=== PATIENT | male | born 1990 | race Caucasian/White ===

== ENCOUNTER 2016-08-23 19:53 | Emergency (ER) | payer OTHER | END 2016-08-23 23:15 | disposition left against medical advice (07) | LOC: ER 19:53 | DX: Z53.21 Procedure and treatment not carried out due to patient leaving prior to being seen by health care provider (principal) | CPT/HCPCS: 99070; 99211 ==

== ENCOUNTER 2016-11-11 18:41 | Emergency (ER) | payer OTHER | END 2016-11-12 02:56 | disposition home or self-care (01) | LOC: ER 18:41 | DX: S92.502A Displaced unspecified fracture of left lesser toe(s), initial encounter for closed fracture (principal); W22.8XXA Striking against or struck by other objects, initial encounter; Y92.009 Unspecified place in unspecified non-institutional (private) residence as the place of occurrence of the external cause; F17.210 Nicotine dependence, cigarettes, uncomplicated | CPT/HCPCS: 29515; 73630; 99070; 99283-25 ==